=== PATIENT | male | born 1975 | race Hispanic/Latino ===

== ENCOUNTER 2018-05-12 01:10 | Emergency (ER) | payer SELFPAY ==
[~2018-05-12] VITALS: Ht 167.6 cm; Wt 113.0 kg
[2018-05-12 01:42] LABS: HEMATOCRIT 50.9 % (39.0-50.0); IMMATURE GRANULOCYTES 0.2 % (0.0-5.0); MEAN CELL VOLUME 92.2 fL CALC (80.0-100.0); MEAN CORPUSCULAR HGB 30.8 pG CALC (26.0-32.0); MEAN CORPUSCULAR HGB CONC 33.4 g/L CALC (32.0-36.0); NEUT# 7.14 thou/uL (1.82-7.42); RED BLOOD COUNT 5.52 mill/uL (4.70-6.10); RED CELL DISTRI WIDTH 13.5 % (11.5-15.5)
[2018-05-12 02:02] LABS: ALBUMIN 4.1 g/dL (3.2-5.0); ALKALINE PHOSPHATASE 87 u/l (38-126); AMYLASE 127 u/l (30-110); ANION GAP 15 (6-22 (CALC)); BILIRUBIN, TOTAL 1.3 mg/dL (0.0-1.4); BUN 9 mg/dL (9-20); BUN/CREATININE RATIO 11 (12-20 (CALC)); CARBON DIOXIDE 27 mmol/l (22-30); CHLORIDE 101 mmol/l (95-108); CREATININE 0.9 mg/dL (0.7-1.3); GFR > 60 ML/MIN (>=60 (CALC)); GFR FOR AFR.AMER. > 60 ML/MIN (>=60 (CALC)); LIPASE 534 u/l (23-300); POTASSIUM 3.9 mmol/l (3.5-5.1); SGOT/AST 29 u/l (17-59); SGPT/ALT 49 u/l (21-72); SODIUM 139 mmol/l (137-146); TOTAL PROTEIN 7.6 g/dL (6.3-8.2)
[2018-05-12 03:10] VITALS: BP 130/78
== END 2018-05-12 03:10 | disposition left against medical advice (07) | DRG 392 ==
LOC: ED 01:10
PROVIDERS: Emergency Medicine
DX: R10.13 Epigastric pain (principal); R19.7 Diarrhea, unspecified; E11.9 Type 2 diabetes mellitus without complications; Z91.19 Patient's noncompliance with other medical treatment and regimen